=== PATIENT | male | born 1975 | race Caucasian/White ===

== ENCOUNTER 2022-05-04 15:57 | Emergency (ER) | payer OTHER, SELFPAY ==
[2022-05-04 16:03] VITALS: BP 149/94; PULSE 64; RESP 14; TEMP 36.7; O2SAT 98; BMI 23.3
[2022-05-04 16:11] VITALS: BP 149/94; PULSE 57; RESP 13; TEMP 36.7; O2SAT 98
[2022-05-04 16:13] VITALS: TEMP 36.7; O2SAT 98
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
[2022-05-04 18:30] VITALS: BP 124/88; PULSE 79; RESP 16; O2SAT 98
[2022-05-04 20:07] VITALS: RESP 16
== END 2022-05-04 20:46 | disposition home or self-care (01) ==
PROVIDERS: Emergency Provider Emergency Medicine; PCP Family Medicine; Visit Provider Emergency Medicine
DX: S01.81XA Laceration without foreign body of other part of head, initial encounter (principal); S70.11XA Contusion of right thigh, initial encounter; V80.42XA Occupant of animal-drawn vehicle injured in collision with car, pick-up truck, van, heavy transport vehicle or bus, initial encounter
CPT/HCPCS: 70450; 99284

== ENCOUNTER 2023-01-16 16:54 | Emergency (ER) | payer OTHER, SELFPAY ==
[2023-01-16 16:56] VITALS: BP 167/100; PULSE 83; RESP 16; TEMP 36.7; O2SAT 98; BMI 22.4
[2023-01-16 17:09] VITALS: BMI 22.5
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
--- NOTE | 2023-01-16 17:21 | EX.ED.DYSGE1 ---
HPI History of Present Illness Chief Complaint: Neuro S/Sx Detail of Chief Complaint: Swelling of his lower lip and trouble speaking Informant: patient Onset/Context/Timing Onset: Days (Several days) Context: Gradual Onset Timing: Continuous Quality: Swelling and difficulty speaking Location: Lower lip Current Severity: Mild Maximum Severity: Mild Worsened by: Nothing Relieved by: Nothing Associated Symptoms Associated Symptoms: None Narrative Narrative: Patient is a 47-year-old male who presents because of trouble speaking and swelling of his lower lip. This started several days ago. He denies fever, chills night sweats. He denies drooling. He denies swelling of his tongue. He denies difficulty opening closing his mouth. He denies any other symptoms. There is no history medic fever, heart murmur, mitral prolapse or SBE. He is not on any immunosuppressive agents. He denies skin lesions. Prior similar symptoms: No Recent Illness/Hospitalization: No PFSH PFSH Medical History No acute medical problems Home Medications penicillin V potassium 250 mg tablet 500 mg PO 4X/DAY #40 tabs 01/16/23 [Rx Last Taken Unknown] Allergy/AdvReac Type Severity Reaction Status Date / Time No Known Allergies Allergy Verified 01/16/23 16:55 Surgical History no surgical history no surgical history Social History Smoking Status: Never smoker ROS ROS ED Constitutional Constitutional ED: Denies chills, fever(s), subjective, sweats or weight loss Eyes Eyes: Denies blurry vision, change in vision or diplopia ENT ENT ED: Denies ear pain, rhinorrhea or sore throat Cardiovascular Cardiovascular: Denies chest pain or palpitations Respiratory/Chest Respiratory/Chest: Denies cough or dyspnea Musculoskeletal Musculoskeletal: Denies arthralgias, back pain, myalgias or neck pain Integumentary Denies Abrasions or rash Neurologic Neurologic: Denies headache(s), paresthesias or weakness Hematologic/Lymphatic Hematologic/Lymphatic: Reports systems reviewed and no addt'l complaints, except as documented EXAM Physical Exam Const Vital Signs: 01/16/23 16:56 Temperature 98.1 F Temperature Source Temporal Pulse Rate 83 Respiratory Rate 16 Blood Pressure 167/100 H Blood Pressure Mean 122 Pulse Ox 98 Oxygen Delivery Method Room Air Positive well nourished, well developed and unkempt; Negative for obese, cachectic or contractures General Appearance ED: unkempt, well developed and NAD; Negative for cachectic, contractures, cyanotic, diaphoretic or pallor Nutritional Appearance: Negative for cachectic or obese HEENT Reports TM's clear and moist mucous membranes HEENT Narrative: Patient has poor dentition. Tooth #30 has a large cavity with purulent material noted. There are several molars on the left and lower teeth that are decayed. Patient has a fetid odor to his breath. There is no trismus. There is no drooling. There is no facial erythema. There is swelling of the lower lip. Negative for trauma Tympanic Membrane ED: Yes TM's clear Eyes PERRL and EOMs intact bilaterally General Eye ED: Negative for pale conjunctiva or scleral icterus Neck no lymphadenopathy, supple and no JVD Neck Narrative: Trachea is midline. There is no in-store expiratory stridor. Chest Wall inspection of chest normal and palpation of chest normal Resp normal respiratory effort and clear to auscultation bilaterally Cardio regular rate, regular rhythm, S1 normal heart sound, S2 normal heart sound and no murmurs Extremity normal to inspection General Extremety ED: Negative for edema or tenderness General Extremity: Negative for edema Neuro oriented x3, CN's II-XII intact bilaterally and no sensory deficits noted Sensorium / Orientation: alert Motor Exam: strength 5/5 throughout Psych Psych Narrative: Affect is flat Appearance: unkempt Skin no rashes or lesions noted, no wounds and skin turgor normal General Skin Exam: Negative for jaundice or pallor MDM MDM MDM Narrative Medical decision making narrative: Patient does not have any neurologic event. Patient has soft tissue swelling due to dental infection. Patient questioned how he could have a dental infection without pain. Patient was informed that he has a fetid odor to his breath there is purulent material noted he has an infection. Patient will be treated with penicillin since he is self-pay. He was not prescribed pain medicine. He was instructed to contact his dentist for dental films and definitive care Discharge Plan Triage Chief Complaint: Neuro S/Sx ED Provider: Clayton Garcia Dx/Rx/DC Orders Clinical Impression: Dental abscess, Dental caries extending into pulp Instructions: ED Dental Abscess Prescriptions: New penicillin V potassium 250 mg tablet 500 mg PO 4X/DAY Qty: 40 0RF Primary Care Provider: Catalino Bell Referrals: Catalino Bell, DO [Primary Care Provider] - Dentist,Your [STAFF PHYSICIAN] - As soon as possible Disposition Disposition: Home, Self Care
[2023-01-16] MEDS: Penicillin Vk 250 MG Tablet 500 MG PO (17:52)
[2023-01-16 18:10] LABS: Bedside Glucose 93 mg/dL (74-106)
== END 2023-01-16 17:57 | disposition home or self-care (01) ==
LOC: ED 17:38
PROVIDERS: Emergency Provider Emergency Medicine; PCP Family Medicine; Visit Provider Emergency Medicine
DX: K04.7 Periapical abscess without sinus (principal); K02.9 Dental caries, unspecified
CPT/HCPCS: 82962; 99282